=== PATIENT | male | born 1980 | race Caucasian/White ===

== ENCOUNTER 2023-01-27 08:51 | Emergency (ER) | payer OTHER, SELFPAY ==
--- NOTE | ~2023-01-27 | XR_ITS ---
EXAMINATION: XR CHEST CLINICAL INFORMATION: Cough and congestion. COMPARISON: None available. TECHNIQUE: Frontal view of the chest was obtained. FINDINGS: The lungs are well expanded. No focal consolidation. No pleural effusion. Cardiac silhouette is within normal limits. Tiny radiodensity projects over the right posterior sixth rib. XR/XR chest 1V IMPRESSION: No acute abnormality.
[2023-01-27 09:04] VITALS: BP 140/83; PULSE 79; RESP 16; TEMP 37; O2SAT 97; BMI 26.4
[2023-01-27 09:19] LABS: MANUAL DIFF FLAG NO
[2023-01-27 09:20] LABS: Basophils Absolute Auto 0.1 X10*3/uL (0.0-0.2); Basophils Percent Auto 0.9 % (0-2); Eosinophils Absolute Auto 0.1 X10*3/uL (0.0-0.4); Eosinophils Percent Auto 1.3 % (0-4); Hematocrit 42.9 % (42.0-52.0); Hemoglobin 14.3 g/dl (14.0-18.0); Imm Gran Abs Auto 0.01 X10*3/uL (0.00-0.03); Imm Gran Pct Auto 0.1 % (0.0-0.4); Lymphocytes Absolute Auto 1.6 X10*3/uL (1.2-4.9); Lymphocytes Percent Auto 22.7 % (20-40); Mean Corpuscular HGB Conc 33.3 g/dl (31.0-36.0); Mean Corpuscular Volume 92.9 fL (80.0-98.0); Monocytes Absolute Auto 0.6 X10*3/uL (0.1-1.2); Monocytes Percent Auto 8.6 % (2-11); Neutrophils Absolute Auto 4.6 x10*3/uL (2.0-8.3); Neutrophils Percent Auto 66.4 % (45-73); Platelet Count 210 X10*3/uL (160-400); Red Blood Count 4.62 X10*6/uL (4.60-5.80); Red Cell Distribution Width 12.6 % (11.0-16.0); White Blood Count 6.9 X10*3/uL (4.8-10.8)
[2023-01-27 09:34] LABS: Alanine Aminotransferase 47 U/L (0-40); Alkaline Phosphatase 60 U/L (39-117); Anion Gap 11 (12-20); Aspartate Amino Transferase 30 U/L (5-37); Bilirubin Total 0.3 mg/dL (0.0-1.0); Blood Urea Nitrogen 10 mg/dL (9-16); Calcium 9.4 mg/dL (8.4-10.2); Carbon Dioxide 29 mmol/L (22-29); Chloride 106 mmol/L (96-108); Creatinine Clr Calc Pharmacy 120.9; Estimated Glomerular Filt Rate > 60; Glucose Random 83 mg/dL (60-115); Potassium 4.3 mmol/L (3.3-5.1); Sodium 142 mmol/L (135-145); Total Protein 7.3 g/dL (6.5-8.0)
[2023-01-27 11:00] VITALS: BP 118/68; PULSE 59; RESP 16; TEMP 36.4; O2SAT 96
--- NOTE | 2023-01-27 11:05 | PC.NURSE ---
aox4. calm, coop. no nvd. SOB/SCALES but breathing well/normal depth and rate, and talks full sentences. +CMS. +o2 sat on RA. remains w cough- states is productive of yellow sputum at times.
[2023-01-27] MEDS: Albuterol/Iprat 2.5/0.5MG 3 ML AMPUL.NEB INHALE (12:02)
[2023-01-27] MEDS: predniSONE 10 MG TABLET 50 MG PO (12:07)
[2023-01-27 12:33] VITALS: BP 119/58; PULSE 76; RESP 16; O2SAT 97
--- NOTE | 2023-01-27 13:21 | ED.GENADULT ---
HPI - General Adult General Chief complaint: General Medical Stated complaint: SOB/Lots of phlegm x1 month Time Seen by Provider: 01/27/23 11:06 Source: patient Mode of arrival: ambulatory History of Present Illness HPI narrative: This is a 43-year-old male who states that he has had 1 month of not feeling well, increased fatigue, congestion with productive cough of yellow sputum and occasionally feels short of breath. Patient states that when he coughs he feels some pain at the shoulder blade. Patient does endorse that he is an everyday smoker of cigars but otherwise denies any alcohol/drugs. Related Data Previous Rx's Medication Instructions Recorded prednisone 50 mg tablet 50 mg PO DAILY 4 days #4 tabs 01/27/23 Allergies Allergy/AdvReac Type Severity Reaction Status Date / Time Sulfa (Sulfonamide Allergy Difficulty Verified 01/27/23 09:03 Antibiotics) Swallowing Review of Systems Review of Systems: Pertinent positives and negatives as stated in HPI [facility] Past Medical History Source: nursing notes reviewed Social History Social History Smoked in Last 30 Days: Yes Use of substances other than those prescribed or required for medical reasons: No Advance Directives: Yes Advance Directives Information Provided: No Advance Directives on File: No Physical Exam ED Vital Signs: Vital Signs - 24 hr 01/27/23 09:04 01/27/23 11:00 01/27/23 12:33 Temperature 98.6 F 97.5 F Pulse Rate 79 59 76 Respiratory Rate 16 16 16 Blood Pressure 140/83 H 118/68 119/58 L Pulse Oximetry 97 96 97 Oxygen Delivery Method Room Air Room Air Room Air BMI result Body Mass Index 26.4 VITAL SIGNS: Reviewed. GENERAL: Well developed, well nourished, in no acute distress. HEAD: Normocephalic/atraumatic EYES: PERRLA, EOMI EARS: Ext canals without abnormality, TMs non-bulging and non-erythematous NOSE: Nares patent bilateral OROPHARYNX: no oral lesions noted, posterior pharynx clear and non-erythematous without noted tonsillar enlargement/erythema/exudates NECK: Supple, no adenopathy LUNGS: Normal breath sounds. No adventitious sounds or accessory muscle use. SpO2<97> CARDIOVASCULAR: Regular rate and rhythm without noted murmurs ABDOMEN: Soft, non-tender, non-distended with bowel sounds. MUSCULOSKELETAL: No tenderness, deformities, or effusions noted on gross inspection. EXTREMITIES: No cyanosis, clubbing or edema. SKIN: Inspection of the skin reveals no rashes NEUROLOGIC: Alert and oriented x 4. Strength and sensation to light touch were grossly intact x 4. Medications Administered Discontinued Medications Generic Name Dose Route Start Last Admin Trade Name Freq PRN Reason Stop Dose Admin Albuterol/Ipratropium 3 ml 01/27/23 11:51 01/27/23 12:02 Albuterol/Iprat 2.5/0.5mg 3 Ml Ampul.Neb INHALE 01/27/23 11:52 3 ml ONCE ONE Administration Prednisone 50 mg 01/27/23 11:51 01/27/23 12:07 Prednisone 10 Mg Tablet PO 01/27/23 11:52 50 mg ONCE ONE Administration Medical Decision Making Medical Decision Making [facility] Narrative: 43-year-old male with history and clinical presentation, DDX: Developing chronic lung disease from smoking, pneumonia, bronchitis I reviewed all investigations and hematologic indices are grossly within normal limits without leukocytosis or left shift, no anemia or thrombocytopenia. Chemistry indices are grossly within normal limits without evidence of SUSI and no electrolyte or liver enzyme derangements. Chest x-ray without infiltrate and otherwise my interpretation is in agreement with radiology's impression. My interpretation is that patient is experiencing bronchitis and possible development chronic lung disease, he was treated with 1 DuoNeb treatment as well as 50 mg of prednisone and on re-evaluation states that he is feeling improvement. He was given an additional 2 puffs of Ventolin and will be discharged with this inhaler as well as a short course of steroids. He was also strongly encouraged to establish care with a primary care doctor Differential Diagnosis Differential Diagnoses: The differential diagnosis associated with the presentation includes Please see the discussion above Admission/Observation Consideration of admission/observation: Escalation of care including admission/observation considered Please see the discussion above Lab Data [facility] Lab Attestation statement: I reviewed the patient's lab results. Please see the discussion above 01/27/23 09:15 01/27/23 09:15 Labs: Lab Results 01/27/23 Range/Units 09:15 WBC 6.9 (4.8-10.8) X10*3/uL RBC 4.62 (4.60-5.80) X10*6/uL Hgb 14.3 (14.0-18.0) g/dl Hct 42.9 (42.0-52.0) % MCV 92.9 (80.0-98.0) fL MCH 31.0 (27.0-33.0) pg MCHC 33.3 (31.0-36.0) g/dl RDW 12.6 (11.0-16.0) % Plt Count 210 (160-400) X10*3/uL MPV 10.0 (9.4-12.4) fL Immature Gran % (Auto) 0.1 (0.0-0.4) % Neut % (Auto) 66.4 (45-73) % Lymph % (Auto) 22.7 (20-40) % [place] % (Auto) 8.6 (2-11) % Eos % (Auto) 1.3 (0-4) % Baso % (Auto) 0.9 (0-2) % Lymph # (Auto) 1.6 (1.2-4.9) X10*3/uL [place] # (Auto) 0.6 (0.1-1.2) X10*3/uL Eos # (Auto) 0.1 (0.0-0.4) X10*3/uL Baso # (Auto) 0.1 (0.0-0.2) X10*3/uL Abs Immat Gran (auto) 0.01 (0.00-0.03) X10*3/uL Absolute Neuts (auto) 4.6 (2.0-8.3) x10*3/uL Absolute Nucleated RBC 0.000 (0.0-0.012) X10*3/uL Nucleated RBC % (auto) 0.0 (0.0-0.2) /100WBC Sodium 142 (135-145) mmol/L Potassium 4.3 (3.3-5.1) mmol/L Chloride 106 (96-108) mmol/L Carbon Dioxide 29 (22-29) mmol/L Anion Gap 11 L (12-20) BUN 10 (9-16) mg/dL Creatinine 0.83 (0.5-1.4) mg/dL Estim Creat Clear Calc 120.9 Estimated GFR > 60 Random Glucose 83 (60-115) mg/dL Calcium 9.4 (8.4-10.2) mg/dL Total Bilirubin 0.3 (0.0-1.0) mg/dL AST 30 (5-37) U/L ALT 47 H (0-40) U/L Alkaline Phosphatase 60 (39-117) U/L Total Protein 7.3 (6.5-8.0) g/dL Albumin 4.0 (3.5-5.0) g/dL Radiology Impression Discussion of test interpretation with radiology: I have reviewed the radiologist's reading. Radiologist Impression: Please see the discussion above Chronic Conditions Patient?s care impacted by: Other Everyday smoker Discharge Plan Discharge Clinical Impression: Bronchitis, Cigar smoker Patient Disposition: Home, Self-Care Instructions: How to Stop Smoking (ED), Acute Bronchitis (ED) Additional Instructions: 1. You have been prescribed a short course of steroids and should take these as indicated. 2. Please use the inhaler every 4-6 hours as needed for feelings of shortness of breath. 3. Please set up care with a primary care doctor at your earliest convenience. Return to the ER for any worsening symptoms. Prescriptions: New prednisone 50 mg tablet 50 mg PO DAILY 4 Days Qty: 4 0RF
[2023-01-27] MEDS: Albuterol Sulfate 90 MCG 8 GM INHALER 2 PUFF INHALE (13:42)
== END 2023-01-27 13:58 | disposition home or self-care (01) ==
PROVIDERS: Emergency Provider Student in an Organized Health Care Education/Training Program
DX: J40 Bronchitis, not specified as acute or chronic (principal); R06.02 Shortness of breath; R05.9 Cough, unspecified; F17.200 Nicotine dependence, unspecified, uncomplicated; Z71.6 Tobacco abuse counseling
CPT/HCPCS: 36415; 71045; 80053; 85025; 99284

== ENCOUNTER 2024-09-29 06:08 | Emergency (ER) | payer SELFPAY ==
--- NOTE | ~2024-09-29 | US_ITS ---
EXAMINATION: US TRIPLEX LOWER EXTREMITY, LEFT CLINICAL INFORMATION: Edema and pain, left lower extremity. COMPARISON: None available. TECHNIQUE: Color-flow triplex imaging with spectral analysis and compression Doppler were performed on the left lower extremity. FINDINGS: Respiratory variation, normal compression and augmented flow are present in the interrogated left common femoral vein, superficial femoral vein, profunda femoral vein, popliteal vein and midcalf peroneal and posterior tibial venous segments . There is no Wilder's cyst. Prominent, nonspecific lymph nodes, left inguinal. Edema without fluid collection. US/US venous duplex LE IMPRESSION: No acute deep venous thrombosis interrogated veins, left lower extremity. Negative for DVT. Electronically signed by: Jose Marley MD 09/29/2024 09:54 AM EDT
[2024-09-29 06:17] VITALS: BP 146/81; PULSE 101; RESP 18; TEMP 36.9; O2SAT 97; BMI 30.7
[2024-09-29 07:04] LABS: MANUAL DIFF FLAG NO
--- NOTE | 2024-09-29 07:05 | ED_ITS ---
HPI - Extremity Problem General Chief complaint: Extremity Problem Stated complaint: left leg infection? Time Seen by Provider: 09/29/24 07:03 Source: patient and old records reviewed Mode of arrival: ambulatory Limitations: no limitations History of Present Illness ED Provider: NAV HPI Narrative: 44 yo male with no sig PMH but does have hx of testerone injections states he does 250IM dose. He took a IM dose 3 days ago on L thigh he did it as usual but this time it was more painful and now he has L thigh pain, redness, swelling and it is spreading further. He denies CP/SOB, fevers, chills. He states it seems to be increasing in size. MD Complaint: extremity pain and other (rash) Onset (ago): day(s) (3) Pain Consistency: constant Location: left and lower extremity Quality: aching Radiation: distal Relieving factors: immobilization Exacerbating factors: range of motion and palpation Associated symptoms: rash Context: other Related Data Previous Rx's ?Medication ?Instructions ?Recorded prednisone 50 mg tablet 50 mg PO DAILY 4 days #4 tab s 01/27/23 cephalexin 500 mg capsule 500 mg PO QID 7 days #28 cap s 09/29/24 doxycycline hyclate 100 mg capsule 100 mg PO BID 7 day s #14 caps 09/29/24 Allergies Allergy/AdvReac Type Severity Reaction Status Date / Time Sulfa (Sulfonamide Allergy Difficulty Verified 09/29/24 06:22 Antibiotics) Swallowing Review of Systems 2 Review of Systems: Constitutional : No Fever, No Chills ENT/Mouth : No sore throat, No Rhinorrhea Eyes: No Eye Pain, No Swelling, No Redness Cardiovascular : No Chest Pain, No SOB Respiratory : No Cough, No Sputum Gastrointestinal : No Nausea, No Vomiting, No Diarrhea, No abdominal Pain Genitourinary : No Dysuria, No Hematuria Musculoskeletal : No joint pain, No Myalgias, No Joint Swelling Skin : No Skin Lesions, positive skin rash Neuro : No Weakness, No Numbness, No Headache Psych : No Anxiety, No Depression All other systems reviewed and are negative [facility] Past Medical History Attestation statement: The following information was validated with the patient. Source: old records reviewed Medical History No pertinent past medical history Social History Social History (Updated 09/29/24 @ 07:27 by Kate Nina DO) Patient Tobacco Use Status: Tobacco use Unknown Physical Exam 2 Vital Signs: Vital Signs: Last Vital Signs Temp 98.3 F 09/29/24 10:27 Pulse 70 09/29/24 10:27 Resp 16 09/29/24 10:27 BP 125/64 09/29/24 10:27 Pulse Ox 98 09/29/24 10:27 O2 Del Method Room Air 09/29/24 10:27 BMI result Body Mass Index 30.7 Appearance: Alert. Oriented X3. No acute distress. Eyes: Pupils equal, round and reactive to light. ENT: Pharynx normal. Neck: Normal inspection. Neck supple. CVS: Normal heart rate and rhythm. Pulses normal. Respiratory: No respiratory distress. Breath sounds normal. Abdomen: Soft and nontender. Skin: Skin warm and dry. Normal skin color. Normal skin turgor. Extremities: No lower extremity edema. L thigh is red and feels swollen on the quadriceps area - distal NV intact, thigh is red and warm to touch, distal pulses are intact compartments are soft and compressible, only has pain with moving leg not at rest Neuro: Oriented X 3. No motor deficit. No sensory deficit. CN2-12 intact Medications Administered Discontinued Medications Generic Name Dose Route Start Last Admin Trade Name Freq PRN Reason Stop Dose Admin Piperacillin Sod/Tazobactam 50 mls @ 100 mls/hr 09/29/24 07:16 09/29/24 08:23 Sod 3.375 gm/ Sodium Chloride IV 09/29/24 07:45 Infused ONCE ONE Infusion Medical Decision Making Medical Decision Making [facility] Narrative: 44 yo male with no sig PMH here with L leg cellulitis starting 3 days ago there is no obvious abscess but he will need labs, IV abx, cultures, lactic acid, CPK and US for DVT/fluid collection he is NV intact distally. Differential Diagnosis Differential Diagnoses: The differential diagnosis associated with the presentation includes cellulitis, myositis, abscess Admission/Observation Consideration of admission/observation: Escalation of care including admission/observation considered labs reassuring CPK only 200 no abscess or DVT on US given his symptoms I think he is suitable for outpatient oral therapy send home with precautions no signs of compartment syndrome and no concern for necrotizing infection Lab Data [facility] Lab Attestation statement: I reviewed the patient's lab results. 09/29/24 06:58 09/29/24 06:58 Labs: Lab Results 09/29/24 09/29/24 Range/Units 06:58 07:31 WBC 10.3 (4.8-10.8) X10*3/uL RBC 5.10 (4.60-5.80) X10*6/uL Hgb 15.5 (14.0-18.0) g/dl Hct 46.7 (42.0-52.0) % MCV 91.6 (80.0-98.0) fL MCH 30.4 (27.0-33.0) pg MCHC 33.2 (31.0-36.0) g/dl RDW 13.0 (11.0-16.0) % Plt Count 198 (160-400) X10*3/uL MPV 10.7 (9.4-12.4) fL Immature Gran % (Auto) 0.4 (0.0-0.4) % Neut % (Auto) 81.4 H (45-73) % Lymph % (Auto) 9.1 L (20-40) % [place] % (Auto) 7.7 (2-11) % Eos % (Auto) 0.9 (0-4) % Baso % (Auto) 0.5 (0-2) % Lymph # (Auto) 0.9 L (1.2-4.9) X10*3/uL [place] # (Auto) 0.8 (0.1-1.2) X10*3/uL Eos # (Auto) 0.1 (0.0-0.4) X10*3/uL Baso # (Auto) 0.1 (0.0-0.2) X10*3/uL Abs Immat Gran (auto) 0.04 H (0.00-0.03) X10*3/uL Absolute Neuts (auto) 8.4 H (2.0-8.3) x10*3/uL Absolute Nucleated RBC 0.000 (0.0-0.012) X10*3/uL Nucleated RBC % (auto) 0.0 (0.0-0.2) /100WBC Sodium 138 (135-145) mmol/L Potassium 4.5 (3.3-5.1) mmol/L Chloride 103 (96-108) mmol/L Carbon Dioxide 29 (22-29) mmol/L Anion Gap 11 L (12-20) BUN 9 (9-16) mg/dL Creatinine 1.10 (0.5-1.4) mg/dL Estim Creat Clear Calc 102.2 Estimated GFR > 60 Random Glucose 107 (60-115) mg/dL Lactic Acid 0.9 (0.5-2.0) mmol/L Calcium 8.8 D (8.4-10.2) mg/dL Total Bilirubin 0.3 (0.0-1.0) mg/dL AST 36 (5-37) U/L ALT 48 H (0-40) U/L Alkaline Phosphatase 48 (39-117) U/L Total Creatine Kinase 239 H (38-174) U/L Total Protein 6.6 (6.5-8.0) g/dL Albumin 3.8 (3.5-5.0) g/dL Independent Interpretation I performed an independent interpretation of an: Ultrasound (no DVT, no abscess) Radiology Impression Discussion of test interpretation with radiology: I have reviewed the radiologist's reading. External Record Review External record reviewed: Outpatient record Prescription Management I considered prescription management with: Pain Medication, Antibiotic and Other Discharge Plan Discharge Clinical Impression: Cellulitis Qualifiers: Site of cellulitis: extremity Site of cellulitis of extremity: lower extremity Laterality: left Qualified Code(s): L03.116 - Cellulitis of left lower limb Patient Disposition: Home, Self-Care Instructions: Cellulitis (ED) Additional Instructions: labs reassuring Ultrasound no blood clot or abscess seen return for fevers, worsenig pain, swelling, numbness, weakness or any other concern no swimming but shower is okay no injections in that thigh for 1 month On a cephalosporin?antibiotic, softer bowel movements are to be expected. Call your provider if you move your bowels more than 4 times a day, your bowel movements are almost all liquid, or you get a rash.? On doxycycline, do not take pills immediately before going to bed and swallow pills with plenty of water. Avoid direct sunlight, iron, antacids, and Pepto Bismol. Call your provider if you develop new ringing in your ears, new problems hearing, dizziness, difficulty swallowing, rash, abdominal discomfort, nausea, or diarrhea.? Prescriptions: New doxycycline hyclate 100 mg capsule 100 mg PO BID 7 Days Qty: 14 0RF cephalexin 500 mg capsule 500 mg PO QID 7 Days Qty: 28 0RF No Action prednisone 50 mg tablet 50 mg PO DAILY 4 Days Qty: 4 0RF Interventions: ED Discharge Assessment Last Done: 09/29/24 10:27 Discharge Date/Time: 09/29/24 10:27 Print Language: Austrian
[2024-09-29 07:08] LABS: Hematocrit 46.7 % (42.0-52.0); Hemoglobin 15.5 g/dl (14.0-18.0); Imm Gran Abs Auto 0.04 X10*3/uL (0.00-0.03); Imm Gran Pct Auto 0.4 % (0.0-0.4); Lymphocytes Absolute Auto 0.9 X10*3/uL (1.2-4.9); Mean Corpuscular HGB Conc 33.2 g/dl (31.0-36.0); Mean Corpuscular Hemoglobin 30.4 pg (27.0-33.0); Mean Corpuscular Volume 91.6 fL (80.0-98.0); NRBC Abs Auto 0.000 X10*3/uL (0.0-0.012); NRBC Pct Auto 0.0 /100WBC (0.0-0.2); Platelet Count 198 X10*3/uL (160-400); Red Blood Count 5.10 X10*6/uL (4.60-5.80); White Blood Count 10.3 X10*3/uL (4.8-10.8)
[2024-09-29 07:20] LABS: Alanine Aminotransferase 48 U/L (0-40); Albumin Level 3.8 g/dL (3.5-5.0); Alkaline Phosphatase 48 U/L (39-117); Anion Gap 11 (12-20); Aspartate Amino Transferase 36 U/L (5-37); Blood Urea Nitrogen 9 mg/dL (9-16); Calcium 8.8 mg/dL (8.4-10.2); Carbon Dioxide 29 mmol/L (22-29); Chloride 103 mmol/L (96-108); Creatinine Clr Calc Pharmacy 102.2; Estimated Glomerular Filt Rate > 60; Potassium 4.5 mmol/L (3.3-5.1); Sodium 138 mmol/L (135-145); Total Protein 6.6 g/dL (6.5-8.0)
[2024-09-29 10:24] VITALS: BP 125/64; PULSE 70; RESP 16; TEMP 36.8; O2SAT 98
[2024-09-29 10:27] VITALS: BP 125/64; PULSE 70; RESP 16; TEMP 36.8; O2SAT 98
== END 2024-09-29 10:27 | disposition home or self-care (01) ==
PROVIDERS: Emergency Provider Emergency Medicine
DX: L03.116 Cellulitis of left lower limb (principal); M79.605 Pain in left leg; Z79.899 Other long term (current) drug therapy
CPT/HCPCS: 36415; 80053; 82550; 83605; 85025; 87040; 93971; 96365; 99284; J2543

== ENCOUNTER → 2024-09-29 07:16 | Outpatient (BNV) | payer SELFPAY | PROVIDERS: Emergency Provider Emergency Medicine; Visit Provider Radiology Diagnostic Radiology | DX: R22.42 Localized swelling, mass and lump, left lower limb (principal); M79.605 Pain in left leg | CPT/HCPCS: 93971 ==

== ENCOUNTER 2024-10-05 10:08 | Emergency (ER) | payer SELFPAY ==
--- NOTE | ~2024-10-05 | US_ITS ---
EXAMINATION: US LOWER EXTREMITY VEINS LIMITED FOLLOW UP LEFT HISTORY: LE leg ache, edema COMPARISON: Comparison is made with the prior examination dated 09/29/2024. TECHNIQUE: Duplex and color Doppler sonographic examination of the deep venous system of the left lower extremity was performed. FINDINGS: The common femoral, superficial femoral, and popliteal veins are patent demonstrating normal compressibility, spontaneous flow, and augmentation. There is a normal color and spectral Doppler waveform appearance of the visualized deep venous system above the knee. The posterior tibial and peroneal veins are patent. US/US venous duplex LE LT IMPRESSION: No evidence of acute DVT in the left lower extremity. Electronically signed by: Maximino Stewart MD 10/05/2024 01:03 PM EDT
[2024-10-05 10:14] VITALS: BP 146/75; PULSE 102; RESP 18; TEMP 36.7; O2SAT 96; BMI 30.4
[2024-10-05 12:03] VITALS: BP 115/50; PULSE 62; RESP 18; TEMP 36.7; O2SAT 97
--- NOTE | 2024-10-05 12:08 | ED.EXTPRO ---
HPI - Extremity Problem General Chief complaint: Extremity Problem Stated complaint: cellulitis left leg Time Seen by Provider: 10/05/24 11:52 Source: patient Mode of arrival: ambulatory Limitations: no limitations History of Present Illness ED Provider: Lee Rodriguez PA-C HPI Narrative: 44-year-old male without significant past medical history presents to the ED today due to left lower extremity edema and achiness. Patient states he was seen in the department Friday 09/29 and was diagnosed with cellulitis. Patient reports he has been taking his antibiotics as prescribed, has 2 days left. Patient states he had been elevating leg, and reported improvement of redness and swelling. 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 When he got home later in the day he noticed his left foot swelling, heaviness and achiness and some redness over his martinez. Patient states Wednesday heaviness and achiness resolved, but still experiencing edema of the left foot. Denies chest pain, shortness of breath, nausea, vomiting Course 12:46- labs without leukocytosis, mild transaminitis most likely due to Keflex/doxy, prednisone treatment for cellulitis. Awaiting ultrasound of left lower extremity. Related Data Previous Rx's ?Medication ?Instructions ?Recorded prednisone 50 mg tablet 50 mg PO DAILY 4 days #4 tabs 01/27/23 cephalexin 500 mg capsule 500 mg PO QID 7 days #28 caps 09/29/24 doxycycline hyclate 100 mg capsule 100 mg PO BID 7 days #14 caps 09/29/24 cephalexin 500 mg capsule 500 mg PO TID 3 days #9 caps 10/05/24 doxycycline hyclate 100 mg capsule 100 mg PO BID 3 days #6 caps 10/05/24 Allergies Allergy/AdvReac Type Severity Reaction Status Date / Time Sulfa (Sulfonamide Allergy Difficulty Verified 10/05/24 10:18 Antibiotics) Swallowing Review of Systems Review of Systems: CONST: Negative for fever, body aches and chills. HENT: Negative for neck pain/stiffness, headache, congestion, sore throat, swelling. EYES: Negative for discharge/pain or vision changes. RESP: Negative for cough/hemoptysis and shortness of breath. CV: Negative chest pain, difficulty breathing, palpitations. ABD: Negative pain, nausea, vomiting. : Negative increase frequency, dysuria, blood in urine or stool. MUSC: Negative for muscle aches, edema. POS LLE edema of foot/ankle. SKIN: Negative rash, lesions/sores. NEURO: Negative headache, dizziness, weakness. [facility] Past Medical History Attestation statement: The following information was validated with the patient. Source: old records reviewed and nursing notes reviewed Medical History No pertinent past medical history Social History Social History (Updated 09/29/24 @ 07:27 by Kate Nina DO) Patient Tobacco Use Status: Tobacco use Unknown Advance Directives: No Advance Directives Information Provided: Yes Physical Exam Vital Signs: Vital Signs: Last Vital Signs Temp 98.1 F 10/05/24 12:03 Pulse 62 10/05/24 12:03 Resp 18 10/05/24 12:03 BP 115/50 L 10/05/24 12:03 Pulse Ox 97 10/05/24 12:03 O2 Del Method Room Air 10/05/24 12:03 BMI result Body Mass Index 30.4 GENERAL APPEARANCE: ?AxOx4, generally well-appearing, no acute distress. HEENT: ?NC, AT. MMM. EOMI, clear conjunctiva, oropharynx clear. NECK: ?Supple without lymphadenopathy.? No stiffness or restricted ROM. HEART:? Normal rate and regular rhythm, normal S1/S1, no m/r/g LUNGS:? CTAB, moving air well. No crackles or wheezes are heard. EXTREMITIES: ?Without cyanosis, clubbing. LLE edema, from foot to proximal ankle, without erythema, warmth, cyanosis. DP pulses 2+, 5/5 strength, no calf TTP, compartments soft, no weeping of tissues, no streaking. See attached photo NEUROLOGICAL: ?Grossly nonfocal. Alert and oriented, moving all 4 extremities. Observed to ambulate with normal gait. Skin: ?Warm and dry without any rash. Medical Decision Making Medical Decision Making MDM Narrative: 4-year-old male without significant past medical history presents to the ED today due to left lower extremity edema and achiness. Patient states he was seen in the department Friday 09/29 and was diagnosed with cellulitis. Patient reports he has been taking his antibiotics as prescribed, has 2 days left. Patient states he had been elevating leg, and reported improvement of redness and swelling. 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 When he got home later in the day he noticed his left foot swelling, heaviness and achiness and some redness over his martinez. Patient states Wednesday heaviness and achiness resolved, but still experiencing edema of the left foot. VSS, in no acute distress, nontoxic appearing, normotensive, no tachycardia, no tachypnea, 97% on room air. Patient without chest pain, shortness of breath. Physical exam reveals lungs clear to auscultation bilaterally, cardiac exam with normal sinus rhythm, no murmurs/rubs/gallops. LLE edema 1+ pitting of posterior ankle, from foot to proximal ankle, without erythema, warmth, cyanosis. DP pulses 2+, 5/5 strength, no calf TTP, compartments soft, no weeping of tissues, no streaking. Will obtain labs, US venous duplex of LLE. Course 12:55- labs without leukocytosis, mild transaminitis- 48/71 most likely due to current antibiotic usage. Awaiting ultrasound results. 13:29- LLE venous duplex ultrasound does not reveal DVT. At this time I believe patient is experiencing dependent edema due to cellulitis that was diagnosed on Wednesday. We will extend antibiotic therapy to 10 days total of Keflex and doxycycline. Counseled patient on elevating the limb, and use of compression stockings while at work to manage edema. Patient does not have healthcare at this time, counseled patient to present to main entrance of [facility] for help with obtaining health care. Counseled patient on strict return precautions. Differential Diagnosis Differential Diagnoses: The differential diagnosis associated with the presentation includes DVT Compartment syndrome Cellulitis Dependent edema Admission/Observation Consideration of admission/observation: Escalation of care including admission/observation considered Lab Data MDM Lab Attestation statement: I reviewed the patient's lab results. 10/05/24 12:21 10/05/24 12:21 Labs: Lab Results 10/05/24 Range/Units 12:21 WBC 6.4 (4.8-10.8) X10*3/uL RBC 4.92 (4.60-5.80) X10*6/uL Hgb 15.1 (14.0-18.0) g/dl Hct 44.8 (42.0-52.0) % MCV 91.1 (80.0-98.0) fL MCH 30.7 (27.0-33.0) pg MCHC 33.7 (31.0-36.0) g/dl RDW 13.2 (11.0-16.0) % Plt Count 249 D (160-400) X10*3/uL MPV 10.3 (9.4-12.4) fL Immature Gran % (Auto) 0.3 (0.0-0.4) % Neut % (Auto) 64.0 (45-73) % Lymph % (Auto) 24.6 (20-40) % Hitchcock % (Auto) 8.6 (2-11) % Eos % (Auto) 1.6 (0-4) % Baso % (Auto) 0.9 (0-2) % Lymph # (Auto) 1.6 (1.2-4.9) X10*3/uL Hitchcock # (Auto) 0.6 (0.1-1.2) X10*3/uL Eos # (Auto) 0.1 (0.0-0.4) X10*3/uL Baso # (Auto) 0.1 (0.0-0.2) X10*3/uL Abs Immat Gran (auto) 0.02 (0.00-0.03) X10*3/uL Absolute Neuts (auto) 4.1 (2.0-8.3) x10*3/uL Absolute Nucleated RBC 0.000 (0.0-0.012) X10*3/uL Nucleated RBC % (auto) 0.0 (0.0-0.2) /100WBC Sodium 140 (135-145) mmol/L Potassium 4.2 (3.3-5.1) mmol/L Chloride 104 (96-108) mmol/L Carbon Dioxide 28 (22-29) mmol/L Anion Gap 12 (12-20) BUN 11 (9-16) mg/dL Creatinine 1.09 (0.5-1.4) mg/dL Estim Creat Clear Calc 102.7 Estimated GFR > 60 Random Glucose 129 H (60-115) mg/dL Calcium 9.1 (8.4-10.2) mg/dL Magnesium 1.9 (1.6-2.6) mg/dL Total Bilirubin 0.2 (0.0-1.0) mg/dL AST 48 H (5-37) U/L ALT 71 H (0-40) U/L Alkaline Phosphatase 52 (39-117) U/L Total Protein 6.4 L (6.5-8.0) g/dL Albumin 3.7 (3.5-5.0) g/dL Independent Interpretation I performed an independent interpretation of an: Ultrasound Interpretation: I independently interpreted the ultrasound that does not reveal DVT or abscess. Radiology Impression Discussion of test interpretation with radiology: I have reviewed the radiologist's reading. Radiologist Impression: US LLE FINDINGS: The common femoral, superficial femoral, and popliteal veins are patent demonstrating normal compressibility, spontaneous flow, and augmentation. There is a normal color and spectral Doppler waveform appearance of the visualized deep venous system above the knee. The posterior tibial and peroneal veins are patent. US/US venous duplex LE LT IMPRESSION: No evidence of acute DVT in the left lower extremity. Electronically signed by: Maximino Stewart MD 10/05/2024 01:03 PM EDT Dictated By: Maximino Stewart MD Signed By: <Electronically signed by Maximino Stewart MD in OV> 10/05/24 1303 Discharge Plan Discharge Clinical Impression: Lower extremity edema Patient Disposition: Home, Self-Care Instructions: Leg Edema (ED), Edema (ED) Additional Instructions: You were evaluated in the ED today due to your left foot being swollen and concerns for cellulitis. Your lab results did not reveal any elevated white blood cell count, everything was in normal range. The ultrasound of your left leg did not reveal any evidence of a deep vein clot. On physical exam your pulses were intact, without evidence of infection, or tightness of the limb. You are being prescribed 3 additional days of your antibiotics cephalexin and doxycycline, Please complete your course of antibiotics. Be sure to elevate the leg several times per day. I believe you would benefit from use of compression stockings while at work to help control the swelling. Please follow up with your primary care physician in order to ensure improvement and monitor the swelling of your leg. You may present to the main entrance of [facility] Wednesday through Wednesday during normal business hours in order to get guidance and assistance in obtaining health insurance. Please return to the emergency department if you develop fever over 100.4?, increasing redness of the left leg, increasing difficulty walking on the left leg, increased pain of the left leg, calf tenderness, oozing or fluid from the left leg, chest pain, shortness of breath, nausea, vomiting or any other new/worsening/concerning symptoms Prescriptions: New cephalexin 500 mg capsule 500 mg PO TID 3 Days Qty: 9 0RF doxycycline hyclate 100 mg capsule 100 mg PO BID 3 Days Qty: 6 0RF No Action prednisone 50 mg tablet 50 mg PO DAILY 4 Days Qty: 4 0RF doxycycline hyclate 100 mg capsule 100 mg PO BID 7 Days Qty: 14 0RF cephalexin 500 mg capsule 500 mg PO QID 7 Days Qty: 28 0RF Print Language: Sami
[2024-10-05 12:25] LABS: MANUAL DIFF FLAG NO
[2024-10-05 12:26] LABS: Hematocrit 44.8 % (42.0-52.0); Hemoglobin 15.1 g/dl (14.0-18.0); Imm Gran Abs Auto 0.02 X10*3/uL (0.00-0.03); Imm Gran Pct Auto 0.3 % (0.0-0.4); Lymphocytes Absolute Auto 1.6 X10*3/uL (1.2-4.9); Mean Corpuscular HGB Conc 33.7 g/dl (31.0-36.0); Mean Corpuscular Hemoglobin 30.7 pg (27.0-33.0); Mean Corpuscular Volume 91.1 fL (80.0-98.0); NRBC Abs Auto 0.000 X10*3/uL (0.0-0.012); NRBC Pct Auto 0.0 /100WBC (0.0-0.2); Platelet Count 249 X10*3/uL (160-400); Red Blood Count 4.92 X10*6/uL (4.60-5.80); White Blood Count 6.4 X10*3/uL (4.8-10.8)
[2024-10-05 12:40] LABS: Alanine Aminotransferase 71 U/L (0-40); Albumin Level 3.7 g/dL (3.5-5.0); Alkaline Phosphatase 52 U/L (39-117); Anion Gap 12 (12-20); Aspartate Amino Transferase 48 U/L (5-37); Blood Urea Nitrogen 11 mg/dL (9-16); Calcium 9.1 mg/dL (8.4-10.2); Carbon Dioxide 28 mmol/L (22-29); Chloride 104 mmol/L (96-108); Creatinine Clr Calc Pharmacy 102.7; Estimated Glomerular Filt Rate > 60; Magnesium 1.9 mg/dL (1.6-2.6); Potassium 4.2 mmol/L (3.3-5.1); Sodium 140 mmol/L (135-145); Total Protein 6.4 g/dL (6.5-8.0)
[2024-10-05 13:43] VITALS: BP 114/60; PULSE 58; RESP 16; TEMP 36.6; O2SAT 96
== END 2024-10-05 13:44 | disposition home or self-care (01) ==
PROVIDERS: Emergency Provider Emergency Medicine
DX: R60.0 Localized edema (principal); L03.116 Cellulitis of left lower limb; Z79.899 Other long term (current) drug therapy
CPT/HCPCS: 36415; 80053; 82550; 83735; 85025; 93971; 99284

== ENCOUNTER → 2024-10-05 12:07 | Outpatient (BNV) | payer SELFPAY | PROVIDERS: Emergency Provider Emergency Medicine; Visit Provider Radiology Diagnostic Radiology | DX: M79.605 Pain in left leg (principal) | CPT/HCPCS: 93971 ==

== ENCOUNTER 2024-11-11 07:01 | Emergency (ER) | payer SELFPAY ==
[2024-11-11 07:03] VITALS: BP 153/70; PULSE 91; RESP 18; TEMP 36.5; O2SAT 100; BMI 29.9
[2024-11-11 07:16] LABS: MANUAL DIFF FLAG NO
[2024-11-11 07:17] LABS: Hematocrit 45.6 % (42.0-52.0); Hemoglobin 15.2 g/dl (14.0-18.0); Imm Gran Abs Auto 0.01 X10*3/uL (0.00-0.03); Imm Gran Pct Auto 0.2 % (0.0-0.4); Lymphocytes Absolute Auto 0.8 X10*3/uL (1.2-4.9); Mean Corpuscular HGB Conc 33.3 g/dl (31.0-36.0); Mean Corpuscular Hemoglobin 29.3 pg (27.0-33.0); Mean Corpuscular Volume 88.0 fL (80.0-98.0); NRBC Abs Auto 0.000 X10*3/uL (0.0-0.012); NRBC Pct Auto 0.0 /100WBC (0.0-0.2); Platelet Count 202 X10*3/uL (160-400); Red Blood Count 5.18 X10*6/uL (4.60-5.80); White Blood Count 6.2 X10*3/uL (4.8-10.8)
[2024-11-11 07:51] LABS: Alanine Aminotransferase 40 U/L (0-40); Albumin Level 3.9 g/dL (3.5-5.0); Alkaline Phosphatase 65 U/L (39-117); Anion Gap 14 (12-20); Aspartate Amino Transferase 31 U/L (5-37); Blood Urea Nitrogen 11 mg/dL (9-16); Calcium 8.9 mg/dL (8.4-10.2); Carbon Dioxide 27 mmol/L (22-29); Chloride 103 mmol/L (96-108); Creatinine Clr Calc Pharmacy 94.8; Estimated Glomerular Filt Rate > 60; Potassium 4.0 mmol/L (3.3-5.1); Sodium 140 mmol/L (135-145); Total Protein 6.8 g/dL (6.5-8.0)
[2024-11-11 08:00] VITALS: BP 148/68; PULSE 90; RESP 16; TEMP 36.5; O2SAT 100
--- NOTE | 2024-11-11 08:11 | ED_ITS ---
HPI - General Adult General Chief complaint: General Medical Stated complaint: Cellulitis Time Seen by Provider: 11/11/24 08:06 Source: patient Mode of arrival: ambulatory Limitations: no limitations History of Present Illness ED Provider: FAB Damian HPI narrative: This is a 44-year-old male with no significant medical history presenting to the emergency department with redness to right lower extremity from the foot all the way up to his thigh. Patient reports this has been going on for about 5 days and rapidly worsening. He thinks it may have started as a scratch on his right 3rd toe and then spread upwards. He reports subjective chills. Denies fevers, nausea, vomiting, abdominal pain, headache, vision changes, dizziness, weakness. Patient has had cellulitis in the past. No known history of MSSA, MRSA. No associated significant pain. No recent travel. Related Data Previous Rx's ?Medication ?Instructions ?Recorded prednisone 50 mg tablet 50 mg PO DAILY 4 days #4 tab s 01/27/23 cephalexin 500 mg capsule 500 mg PO QID 7 days #28 cap s 09/29/24 doxycycline hyclate 100 mg capsule 100 mg PO BID 7 day s #14 caps 09/29/24 cephalexin 500 mg capsule 500 mg PO TID 3 days #9 caps 10/05/24 doxycycline hyclate 100 mg capsule 100 mg PO BID 3 day s #6 caps 10/05/24 Allergies Allergy/AdvReac Type Severity Reaction Status Date / Time Sulfa (Sulfonamide Allergy Difficulty Verified 11/11/24 07:06 Antibiotics) Swallowing Review of Systems 2 Review of Systems: Yes all other systems are reviewed and are negative PMFSH Past Medical History Attestation statement: The following information was validated with the patient. Source: old records reviewed and nursing notes reviewed Medical History No pertinent past medical history Social History Social History Patient Tobacco Use Status: Tobacco use Unknown Advance Directives: No Advance Directives Information Provided: Yes Physical Exam ED Exam Exam: Appearance: Alert.? Oriented X3.? No acute distress.? Head: Normocephalic, atraumatic, no step-offs or deformities Eyes: Pupils equal, round and reactive to light.? ENT: Pharynx normal.? Neck: Normal inspection.? Neck supple.? CVS: Normal heart rate and rhythm.? Pulses normal.? Respiratory: No respiratory distress.? Breath sounds normal.? Abdomen: Soft and nontender.? Skin: Skin warm and dry.? Normal skin color.? Normal skin turgor.?+ erythema, warmth from the foot up to the mid R thigh with lymphangitic spread. Negative Homans sign bilaterally Extremities: No lower extremity edema.? No calf ttp. 5/5 strength to bilateral upper and lower extremities Back: No midline tenderness, no C-spine tenderness, full range of motion, no CVA tenderness bilaterally Neuro: Oriented X 3.? No motor deficit.? No sensory deficit. CN 2-12 intact Vital Signs: Vital Signs - 24 hr 11/11/24 07:03 11/11/24 08:00 Temperature 97.7 F 97.7 F Pulse Rate 91 90 Respiratory Rate 18 16 Blood Pressure 153/70 H 148/68 H Pulse Oximetry 100 100 Oxygen Delivery Method Room Air Room Air BMI result Body Mass Index 29.9 Course Reevaluation(s) Reevaluation #1: When I told patient he would be admitted he tells me he has no problem with being admitted however he needs to run home and take care of his daughter who has special needs prior to admission. He states he will leave and he will come back for antibiotics and admission. He has nobody who has daughter can stay with at this time so he needs to get that all figured out. Patient is aware that he needs admission. He understands the risks associated with this diagnosis if he does not return including worsening infection, sepsis, . Patient will return to the department for antibiotics and hospital admission Time: 08:46 Medical Decision Making Medical Decision Making [facility] Narrative: 0822 44-year-old male presents with redness to right lower extremity ongoing for 5 days worsening. Physical exam erythema, warmth to right lower extremity from the foot up to the thigh. History and physical exam concerning for cellulitis with lymphangitic spread. Unlikely DVT, arterial occlusion, acute threat to limb. Plan labs, antibiotics, hospital admission Differential Diagnosis Differential Diagnoses: The differential diagnosis associated with the presentation includes (History and physical exam concerning for cellulitis with lymphangitic spread. Unlikely DVT, arterial occlusion, acute threat to limb.) Admission/Observation Consideration of admission/observation: Escalation of care including admission/observation considered Lab Data [facility] Lab Attestation statement: I reviewed the patient's lab results. 11/11/24 07:12 11/11/24 07:12 Labs: Lab Results 11/11/24 Range/Units 07:12 WBC 6.2 (4.8-10.8) X10*3/uL RBC 5.18 (4.60-5.80) X10*6/uL Hgb 15.2 (14.0-18.0) g/dl Hct 45.6 (42.0-52.0) % MCV 88.0 (80.0-98.0) fL MCH 29.3 (27.0-33.0) pg MCHC 33.3 (31.0-36.0) g/dl RDW 13.9 (11.0-16.0) % Plt Count 202 (160-400) X10*3/uL MPV 10.5 (9.4-12.4) fL Immature Gran % (Auto) 0.2 (0.0-0.4) % Neut % (Auto) 73.8 H (45-73) % Lymph % (Auto) 13.1 L (20-40) % Eddy % (Auto) 10.5 (2-11) % Eos % (Auto) 2.1 (0-4) % Baso % (Auto) 0.3 (0-2) % Lymph # (Auto) 0.8 L (1.2-4.9) X10*3/uL Eddy # (Auto) 0.7 (0.1-1.2) X10*3/uL Eos # (Auto) 0.1 (0.0-0.4) X10*3/uL Baso # (Auto) 0.0 (0.0-0.2) X10*3/uL Abs Immat Gran (auto) 0.01 (0.00-0.03) X10*3/uL Absolute Neuts (auto) 4.6 (2.0-8.3) x10*3/uL Absolute Nucleated RBC 0.000 (0.0-0.012) X10*3/uL Nucleated RBC % (auto) 0.0 (0.0-0.2) /100WBC Sodium 140 (135-145) mmol/L Potassium 4.0 (3.3-5.1) mmol/L Chloride 103 (96-108) mmol/L Carbon Dioxide 27 (22-29) mmol/L Anion Gap 14 (12-20) BUN 11 (9-16) mg/dL Creatinine 1.17 (0.5-1.4) mg/dL Estim Creat Clear Calc 94.8 Estimated GFR > 60 Random Glucose 89 (60-115) mg/dL Calcium 8.9 (8.4-10.2) mg/dL Total Bilirubin 0.3 (0.0-1.0) mg/dL AST 31 (5-37) U/L ALT 40 (0-40) U/L Alkaline Phosphatase 65 (39-117) U/L Total Protein 6.8 (6.5-8.0) g/dL Albumin 3.9 (3.5-5.0) g/dL Critical Care Time Critical Care Time Critical Care Time: No Discharge Plan Discharge Clinical Impression: Cellulitis Patient Disposition: Home, Self-Care Instructions: Cellulitis (ED) Additional Instructions: Please [place] for admission. Prescriptions: No Action prednisone 50 mg tablet 50 mg PO DAILY 4 Days Qty: 4 0RF doxycycline hyclate 100 mg capsule 100 mg PO BID 7 Days Qty: 14 0RF cephalexin 500 mg capsule 500 mg PO QID 7 Days Qty: 28 0RF cephalexin 500 mg capsule 500 mg PO TID 3 Days Qty: 9 0RF doxycycline hyclate 100 mg capsule 100 mg PO BID 3 Days Qty: 6 0RF Referrals: Physician,Unknown J [Primary Care Provider, Medical] Stand Alone Forms: Work/School Release Print Language: Wallisian
--- NOTE | 2024-11-11 08:50 | PC.NURSE ---
pt discharging home to situate his children and will be returning for admission within the hour. this nurse will retriage and do all worklist upon his return.
[2024-11-11 08:51] VITALS: BP 148/68; PULSE 90; RESP 16; TEMP 36.5; O2SAT 100
== END 2024-11-11 08:52 | disposition home or self-care (01) ==
PROVIDERS: Emergency Provider Emergency Medicine
DX: L03.115 Cellulitis of right lower limb (principal)
CPT/HCPCS: 36415; 80053; 85025; 99283

== ENCOUNTER 2024-11-11 09:44 | Inpatient (IN) | payer SELFPAY ==
--- NOTE | ~2024-11-11 | US_ITS ---
CLINICAL HISTORY: swelling Venous duplex ultrasound right lower extremity Comparison: US/SR - US LOWER EXTREMITY VEINS LIMITED FOLLOW UP LEFT - 10/05/24 12:44 EDT Findings: The visualized deep veins are fully compressible with normal Doppler color flow and spectral tracings. No popliteal cyst. IMPRESSION: 1. Negative for right lower extremity deep vein thrombosis. This document has been electronically signed by: Marin Bojorquez MD on 11/11/2024 12:06:25
--- NOTE | 2024-11-11 09:48 | ED.GENADULT ---
HPI - General Adult General Chief complaint: General Medical Stated complaint: Cellulitis Time Seen by Provider: 11/11/24 09:48 Source: patient Mode of arrival: ambulatory Limitations: no limitations History of Present Illness ED Provider: FAB Damian HPI narrative: This patient came back with cellulitis for hospital admission and antibiotics. HPI from previous chart earlier today This is a 44-year-old male with no significant medical history presenting to the emergency department with redness to right lower extremity from the foot all the way up to his thigh. Patient reports this has been going on for about 5 days and rapidly worsening. He thinks it may have started as a scratch on his right 3rd toe and then spread upwards. He reports subjective chills. Denies fevers, nausea, vomiting, abdominal pain, headache, vision changes, dizziness, weakness. Patient has had cellulitis in the past. No known history of MSSA, MRSA. No associated significant pain. No recent travel. Related Data Previous Rx's ?Medication ?Instructions ?Recorded prednisone 50 mg tablet 50 mg PO DAILY 4 days #4 tabs 01/27/23 cephalexin 500 mg capsule 500 mg PO QID 7 days #28 caps 09/29/24 doxycycline hyclate 100 mg capsule 100 mg PO BID 7 days #14 caps 09/29/24 cephalexin 500 mg capsule 500 mg PO TID 3 days #9 caps 10/05/24 doxycycline hyclate 100 mg capsule 100 mg PO BID 3 days #6 caps 10/05/24 Allergies Allergy/AdvReac Type Severity Reaction Status Date / Time Sulfa (Sulfonamide Allergy Difficulty Verified 11/11/24 09:56 Antibiotics) Swallowing Review of Systems Review of Systems: Yes all other systems are reviewed and are negative [facility] Past Medical History Attestation statement: The following information was validated with the patient. Source: old records reviewed and nursing notes reviewed Medical History No pertinent past medical history Social History Social History Patient Tobacco Use Status: Tobacco use Unknown Smoked in Last 30 Days: No Use of substances other than those prescribed or required for medical reasons: Yes Substance Use Type: Marijuana Substance Use Frequency: Occasionally Advance Directives: No Advance Directives Information Provided: Yes Do you have a plan to hurt others: No Plan Nutrition Risks: No Nutritional Risk Physical Exam ED Exam Exam: Appearance: Alert.? Oriented X3.? No acute distress.? Head: Normocephalic, atraumatic, no step-offs or deformities Eyes: Pupils equal, round and reactive to light.? ENT: Pharynx normal.? Neck: Normal inspection.? Neck supple.? CVS: Normal heart rate and rhythm.? Pulses normal.? Respiratory: No respiratory distress.? Breath sounds normal.? Abdomen: Soft and nontender.? Skin: Skin warm and dry.? Normal skin color.? Normal skin turgor.?+ erythema, warmth from the foot up to the mid R thigh with lymphangitic spread. Negative Homans sign bilaterally Extremities: No lower extremity edema.? No calf ttp. 5/5 strength to bilateral upper and lower extremities Back: No midline tenderness, no C-spine tenderness, full range of motion, no CVA tenderness bilaterally Neuro: Oriented X 3.? No motor deficit.? No sensory deficit. CN 2-12 intact Vital Signs: Vital Signs - 24 hr 11/11/24 09:55 Temperature 97.9 F Pulse Rate 90 Respiratory Rate 18 Blood Pressure 113/58 L Pulse Oximetry 96 Oxygen Delivery Method Room Air BMI result Body Mass Index 29.9 Course Reevaluation(s) Reevaluation #1: labs reviewed from earlier. Plan- hospital admission Time: 10:21 Medical Decision Making Medical Decision Making [facility] Narrative: 0909 44-year-old male presents with redness to right lower extremity ongoing for 5 days worsening. Physical exam erythema, warmth to right lower extremity from the foot up to the thigh. History and physical exam concerning for cellulitis with lymphangitic spread. Unlikely DVT, arterial occlusion, acute threat to limb. Plan labs, antibiotics, hospital admission Differential Diagnosis Differential Diagnoses: The differential diagnosis associated with the presentation includes (History and physical exam concerning for cellulitis with lymphangitic spread. Unlikely DVT, arterial occlusion, acute threat to limb.) Admission/Observation Consideration of admission/observation: Escalation of care including admission/observation considered Consult Healthcare Provider Management of the patient was discussed with: Hospitalist Jorge A ) Lab Data [facility] Lab Attestation statement: I reviewed the patient's lab results. Independent Interpretation Interpretation: I considered obtaining a DVT steady of right lower extremity, however history and physical exam not consistent with DVT. External Record Review External record reviewed: Inpatient record, Office record, Outpatient record, Prior outpatient labs, Prior outpatient radiology, Primary care record and Outside ED record Prescription Management I considered prescription management with: Antibiotic Critical Care Time Critical Care Time Critical Care Time: Yes Total Critical Care Time: 45 Attestation: I attest to this time spent taking care of the patient, obtaining history, physical, reviewing labs, imaging, treatment of patients condition +/- specialist/hospitalist consult +/- procedure Discharge Plan Discharge Clinical Impression: Cellulitis Patient Disposition: Admitted As Inpatient
[2024-11-11 09:55] VITALS: BP 113/58; PULSE 90; RESP 18; TEMP 36.6; O2SAT 96; BMI 29.9
--- NOTE | 2024-11-11 10:25 | PHA.MEDREC ---
Pharmacy Consult ? Medication Reconciliation Pharmacy has completed the medication reconciliation. Spoke to patient at bedside, no home medications/OTC
--- NOTE | 2024-11-11 10:32 | PC.NURSE ---
patient a&ox3, iv inserted, blood cultures/lactic drawn, iv abx hung per order, vss, pt RLE red/hot to touch. pt being admitted for IV abx- hospitalist at bedside, plan of care ongoing.
--- NOTE | 2024-11-11 10:41 | P.HPHOSP_ITS ---
History of Present Illness Date of Service: 11/11/24 Attending physician on admission: Diana Loo Chief Complaint: right leg redness This is a 44-year-old male with no significant past medical history who presents to the emergency department with redness of his right leg. He has noticed over the past 4-5 days he has had increasing redness and swelling of the right leg. He kneels a lot for his job so he initially thought the swelling was primarily due to that but the swelling continued to worsen and the redness spread up his leg and therefore he presented to the emergency department for evaluation. He reports he was treated for cellulitis in the opposite leg in September and completed a course of antibiotics at that time. He believes he may have a component of athlete's foot. He has had some chills but denies any fever. In the emergency department he was afebrile, lab work revealed no leukocytosis, no evidence of sepsis but the erythema in his right lower extremity was extensive from his foot to mid thigh and therefore he will be admitted to the hospital for further management. Review of Systems 2 Review of Systems: Yes all other systems are reviewed and are negative Constitutional: Constitutional: Reports chills and Denies fever(s) Gastrointestinal: Gastrointestinal: Denies abdominal pain and Denies vomiting [facility] Medical History (Updated 11/11/24 @ 14:48 by Graciela Uriarte RN) Cellulitis No pertinent past medical history Social History Household Members: Children Housing: Apartment Do you presently have visiting nurse or other home services: No Patient Tobacco Use Status: Never used Tobacco Substance Use Type: Marijuana service: No Meds Allergies Allergy/AdvReac Type Severity Reaction Status Date / Time Sulfa (Sulfonamide Allergy Difficulty Verified 11/11/24 09:56 Antibiotics) Swallowing Active Medications: Current Medications Acetaminophen (Acetaminophen 325 Mg Tablet) 650 mg PO Q6H PRN PRN Reason: Pain, Mild 1-3,fever,headache Calcium Carbonate (Calcium Carbonate 750 Mg Tab.Chew) 750 mg PO Q4H PRN PRN Reason: Heartburn Enoxaparin Sodium (Enoxaparin Sodium 40 Mg/0.4 Ml Syringe) 40 mg SUBCUT Q24H MICKEY Magnesium Hydroxide (Milk Of Magnesia 30 Ml Oral.Susp) 30 ml PO DAILY PRN PRN Reason: Constipation Melatonin (Melatonin 3 Mg Tablet) 6 mg PO BEDTIME PRN PRN Reason: Insomnia Ondansetron HCl (Ondansetron Hcl 4 Mg/2 Ml Vial) 4 mg IVPUSH Q8H PRN PRN Reason: Nausea and Vomiting Sodium Chloride (0.9 % Sodium Chloride Flush 3 Ml Syringe) 3 ml IVFLUSH QSHIFT [facility] Physical Exam 2 Vital Signs and Narrative: Vital Signs: Last Vital Signs Temp 97.9 F 11/11/24 09:55 Pulse 90 11/11/24 09:55 Resp 18 11/11/24 09:55 BP 113/58 L 11/11/24 09:55 Pulse Ox 96 11/11/24 09:55 O2 Del Method Room Air 11/11/24 09:55 BMI result Body Mass Index 29.9 Const: General: cooperative, comfortable, no acute distress, alert and awake Nutritional Appearance: average body habitus Orientation/consciousness: p atient oriented x3 Resp: Effort & Inspection: normal respiratory effort, able to speak in complete sentences, no respiratory distress and no use of accessory muscles Cardio: Rate: regular rate GI: Inspection: No distended Palpation (GI): Soft to palpation and nontender Skin: Other: RLE edema and erythema, warmth extending up to mid thigh Neuro: General: patient oriented x3 Results Labs 11/11/24 10:49 Assessment and Plan (1) Cellulitis: Status: Acute Plan This is a 44-year-old male with no significant past medical history who presents to the emergency department with redness and swelling of his right lower extremity admitted for extensive cellulitis Right lower extremity cellulitis Covering greater than 50% with the right leg No sepsis denies h/o MRSA will treat with IV kefzol, if no improvement can broaden coverage check US to rule out DVT Blood cultures pending dvt ppx - early ambualtion Due to the extensive nature of the cellulitis, patient is likely to require 2 midnight stay in the hospital for IV antibiotics Quality Stroke Does the patient have a stroke diagnosis?: No VTE Prior VTE?: No VTE Risk Level:: Medical - moderate - high VTE Device Contraindication: Treatment Not Indicated VTE Drug Contraindication: N/A - Med Ordered
[2024-11-11 11:08] LABS: Creatinine Clr Calc Pharmacy 103.7; Estimated Glomerular Filt Rate > 60
[2024-11-11 12:00] VITALS: BP 115/60; PULSE 90; RESP 18; TEMP 36.6; O2SAT 97
--- NOTE | 2024-11-11 12:40 | PC.NURSE ---
patient currently sleeping, rr equal/non labored, lunch brought into room placed at bedside, will allow to sleep- tech notified food may need to be warmed when he wakes.
[2024-11-11] MEDS: 0.9 % Sodium Chloride Flush 3 ML SYRINGE IVFLUSH (14:34)
[2024-11-11 15:14] VITALS: BP 142/76; PULSE 67; RESP 18; TEMP 36.2; O2SAT 97
--- NOTE | 2024-11-11 16:24 | MHC.CM.PN ---
Addendum entered by Elsy Johnson 11/12/24 11:46: PT HAS NO HEALTH INSURANCE, REFERRAL SENT TO [facility] WITH PTS PERMISSION Addendum entered by Elsy Johnson 11/12/24 10:30: PT CLEARED TO DC HOME TODAY WITH NO SERVICES Original Note: PT REPORTS HE LIVES WITH HIS CHILDREN AND IS INDEPENDENT WITH CARE HE HAS NO DME AND NO SERVICES DECLINES A HCP NO PCP, BROCHURE PROVIDED DCP: HOME VIA PRIVATE TRANSPORT
[2024-11-11 19:21] VITALS: BP 143/56; PULSE 75; RESP 18; TEMP 36.4; O2SAT 96
[2024-11-11 23:34] VITALS: BP 120/59; PULSE 60; RESP 18; TEMP 36.7; O2SAT 96
[2024-11-12 03:04] VITALS: BP 119/67; PULSE 55; RESP 18; TEMP 36.3; O2SAT 98
[2024-11-12] MEDS: 0.9 % Sodium Chloride Flush 3 ML SYRINGE IVFLUSH (07:00)
[2024-11-12 07:43] VITALS: BP 122/59; PULSE 63; RESP 14; TEMP 36.6; O2SAT 98
--- NOTE | 2024-11-12 10:26 | P.DS_ITS ---
DS: Providers Provider Date of Service: 11/12/24 Date of admission: 11/11/24 10:11 Date of discharge: 11/12/24 Primary care physician: None Physician DS: Diagnosis Discharge Diagnosis (1) Cellulitis: Status: Acute DS: Summary Hospital Course Hospital Course: From the history and physical by the admitting hospitalist, FAB Arreguin, 11/11/24: This is a 44-year-old male with no significant past medical history who presents to the emergency department with redness of his right leg. He has noticed over the past 4-5 days he has had increasing redness and swelling of the right leg. He kneels a lot for his job so he initially thought the swelling was primarily due to that but the swelling continued to worsen and the redness spread up his leg and therefore he presented to the emergency department for evaluation. He reports he was treated for cellulitis in the opposite leg in September and completed a course of antibiotics at that time. He believes he may have a component of athlete's foot. He has had some chills but denies any fe lisseth. In the emergency department he was afebrile, lab work revealed no leukocytosis, no evidence of sepsis but the erythema in his right lower extremity was extensive from his foot to mid thigh and therefore he will be admitted to the hospital for further management. He was admitted to the medical-surgical unit and treated with IV cefazolin with rapid improvement. Venous duplex negative for DVT. He was discharged on PO cefadroxil x 6 days and was instructed to establish primary care as soon as possible, care for his feet, and treat any athlete's foot aggressively. Time Attestation Discharge Coordination Time (in mins): 25 Quality: Safe Use of Opioids Does Pt have an Active Cancer Diagnosis on the Problem List?: No Quality: Stroke Does the patient have a stroke diagnosis?: No Physical Exam Vital Signs: Vital Signs: Last Vital Signs Temp 97.9 F 11/12/24 07:43 Pulse 63 11/12/24 07:43 Resp 14 11/12/24 07:43 BP 122/59 L 11/12/24 07:43 Pulse Ox 98 11/12/24 07:43 O2 Del Method Room Air 11/12/24 07:43 BMI result Body Mass Index 29.9 Gen: in no acute distress HEENT: sclera anicteric, moist mucus membranes Neck: supple Lungs: clear to auscultation bilaterally Heart: regular rate and rhythm, no murmurs Abd: soft, non-tender, non-distended Ext: RLE with residual swelling below knee, minimal erythema Skin: warm/well-perfused Neuro: alert and oriented x3, no focal findings Psych: appropriate affect DS: Data Data Completed and Pending Completed studies during hospitalization [Text1]: Laboratory Results Creatinine 1.07 mg/dL (0.5-1.4) 11/11/24 10:49 Estim Creat Clear Calc 103.7 11/11/24 10:49 Estimated GFR > 60 11/11/24 10:49 Lactic Acid 1.6 mmol/L (0.5-2.0) 11/11/24 10:19 Discharge Plan Discharge Anticipated Discharge Date/Time: 11/12/24 10:23 Patient Disposition: Home, Self-Care Discharge Diagnosis: cellulitis Referrals: Physician,None [Primary Care Provider, Medical] - 1 Week Discharge Medications: New cefadroxil 1 gram tablet 1,000 mg PO BID 6 Days Qty: 12 0RF miconazole nitrate 2 % powder 1 appl topical BID Qty: 85 0RF Discharge Orders: Discharge Order (Routine); Ordered 11/12/24 Ordered By: Diana Loo Diet: Advance to usual diet Activity on Discharge: As tolerated Stand Alone Forms: Patient Portal Discharge page Print Language: French Care Plan Goals: cure infection Health Concerns: cellulitis Plan of Treatment: cefadroxil 1000 mg twice daily for 6 days good foot care/moisturizing; treat athlete's foot aggressively establish primary care as soon as possible; return to the hospital if you experience recurrent or worsening symptoms. Assessment: See Discharge Summary.
== END 2024-11-12 10:48 | disposition home or self-care (01) | DRG 603 ==
LOC: HO.ED 10:09 → HO.EDOVER 10:12 → HO.S3 13:47
PROVIDERS: Physician Assistant; Admitting Provider Physician Assistant Medical; Emergency Provider Emergency Medicine; Visit Provider Family Medicine
DX: L03.115 Cellulitis of right lower limb (principal)
CPT/HCPCS: 36415; 82565; 83605; 87040; 93971; 99285; J0690; J1650; J2543

== ENCOUNTER 2024-11-11 10:11 | Outpatient (BNV) | payer SELFPAY | END 2024-11-11 11:15 | PROVIDERS: Admitting Provider Physician Assistant Medical; Emergency Provider Emergency Medicine; Visit Provider Radiology Vascular & Interventional Radiology | DX: R22.41 Localized swelling, mass and lump, right lower limb (principal) | CPT/HCPCS: 93971 ==

== ENCOUNTER → 2024-11-11 10:11 | Outpatient (BNV) | payer SELFPAY | PROVIDERS: Admitting Provider Physician Assistant Medical; Emergency Provider Emergency Medicine; Visit Provider Physician Assistant Medical | DX: L03.90 Cellulitis, unspecified (principal) | CPT/HCPCS: 99223; 99238 ==